=== PATIENT | female | born 1955 | race Caucasian/White ===

== ENCOUNTER → 2018-05-04 | Outpatient (CLI) | payer OTHER ==
[~2018-05-04] MED LIST: AMBIEN5 MG PO; AMLODIPINE BESYL5 MG PO; ARTHROTEC EC 51 EACH; ASPIR 8181 MG PO; CLONIDINE HCL0.1 MG PO; CLONIDINE HCL0.2 MG PO; CRESTOR40 MG PO; DIOVAN160 MG PO; GABAPENTIN100 MG; GABAPENTIN300 MG PO; HYDROCHLOROTHIA25 MG PO; LEXAPRO10 MG PO; LEXAPRO20 MG PO; LISINOPRIL10 MG PO; METOPROLOL TART25 MG PO; NATURE-THROID32.5 MG PO; PROGESTERONE100 MG PO; Z.0.CLONIDINE HCL0.1 PO; Z.0.GABAPENTIN300 MG PO; Z.0.NEXIUM40 MG PO; Z.0.REGLAN10 MG PO
--- NOTE | 2018-05-04 09:43 | Diagnostic Imaging Report ---
EXAM: Renal Ultrasound and pelvic ultrasound (non-OB) INDICATION: Urinary tract infection COMPARISON: None TECHNIQUE: Transverse and longitudinal images of the kidneys and bladder were obtained. FINDINGS: Right Kidney: Length: Measures 9.2 x 4.5 x 4.5 cm Appearance: Normal echogenicity. Collecting system: No hydronephrosis Stones: None Cyst/Mass: None Left Kidney: Length: Measures 11.4 x 5.0 x 5.0 cm Appearance: Normal echogenicity. Collecting system: No hydronephrosis Stones: None Cyst/Mass: None Bladder: Unremarkable in appearance. Bilateral ureteral jets are present. IMPRESSION: Unremarkable renal and bladder ultrasound. Signed by: Dr. Courtney Gardiner MD on 05/04/2018 9:39 AM
== END ==
LOC: US 07:51
PROVIDERS: ATTEND Family Medicine
DX: N39.0 Urinary tract infection, site not specified (principal)
CPT/HCPCS: 76770; 76857